=== PATIENT | male | born 1990 | race Caucasian/White ===

== ENCOUNTER 2022-11-08 16:54 | Emergency (ER) | payer BC, OTHER ==
[~2022-11-08] VITALS: Ht 185.4 cm; Wt 90.3 kg
--- NOTE | 2022-11-08 16:54 | NUR ---
PT BROUGHT IN BY [facility], TRIAGED AND PLACED IN BED #2, REPORT GIVEN TO TEOFILO
[2022-11-08 16:55] VITALS: BP_SYST 153; PULSE 89; RESP 18; TEMP 98; O2SAT 95
--- NOTE | 2022-11-08 18:30 | NUR ---
Dr. Kauffman at bedside with patient at this time.
[2022-11-08] MEDS ORDERED: NACL 0.9% 1,000 ML IV ONE (18:45)
[2022-11-08] MEDS ORDERED: levETIRAcetam 500 MG IV PREMIX 100 ML IV ONE (18:45)
--- NOTE | 2022-11-08 18:45 | NUR ---
Patient taken to Radiology department for exams.
--- NOTE | 2022-11-08 19:00 | NUR ---
Patient returned from radiology dept. VALENTE Doyle gave IV meds and then gave report to NOC VALENTE Graves.
[2022-11-08 19:23] LABS: BASOPHILS % (AUTO) 0.4 % (0.0-2.0); EOSINOPHILS # (AUTO) 0.1 K/uL (0.0-0.4); EOSINOPHILS % (AUTO) 1.1 % (0.0-4.0); HEMATOCRIT 40.9 % (36-54); HEMOGLOBIN 13.6 g/dL (14.0-18.0); LYMPHOCYTES # (AUTO) 1.5 K/uL (1.0-5.5); LYMPHOCYTES % (AUTO) 15.1 % (20.5-51.5); MEAN CORPUSCULAR HEMOGLOBIN 29 pg (27-31); MEAN CORPUSCULAR HGB CONC 33 % (32-36); MEAN CORPUSCULAR VOLUME 89 fL (79.0-98.0); MONOCYTES # (AUTO) 0.8 K/uL (0.0-1.0); MONOCYTES % (AUTO) 7.9 % (1.7-9.3); NEUTROPHILS # (AUTO) 7.5 K/uL (1.8-7.7); NEUTROPHILS % (AUTO) 75.5 % (40.0-70.0); PLATELET COUNT (AUTO) 230 K/uL (130-430); RED BLOOD CELL COUNT(AUTO) 4.61 MIL/uL (4.2-6.2); RED CELL DISTRIBUTION WIDTH 12.9 % (9.0-15.0)
--- NOTE | 2022-11-08 19:37 | NUR ---
PATIENT STABLE VITALS SIGNS IN NORMAL LIMITS NOT COMPLAINING OF PAIN AT THIS TIME
[2022-11-08 19:38] LABS: ALBUMIN 3.8 g/dL (3.4-4.8); CALCIUM 8.7 mg/dL (8.4-11.0); CREATININE 0.9 mg/dL (0.55-1.30); TOTAL BILIRUBIN 0.3 mg/dL (0.0-1.0)
[2022-11-08 19:52] LABS: BILIRUBIN,URINE NEGATIVE (NEGATIVE); BLOOD, URINE NEGATIVE (NEGATIVE); CLARITY/URINE CLEAR (CLEAR); COLOR,URINE YELLOW (YELLOW); GLUCOSE,URINE NEGATIVE (NEGATIVE); KETONES,URINE NEGATIVE (NEGATIVE); LEUKOCYTE ESTERASE ,URINE NEGATIVE (NEGATIVE); NITRITE, URINE NEGATIVE (NEGATIVE); PH,URINE 6.5 (5.0-8.0); PROTEIN URINE NEGATIVE (NEGATIVE); UROBILINOGEN,URINE 0.2 (0.2-1.0)
[2022-11-08] MEDS ORDERED: KETOROLAC TROMETHAMINE 30 MG VIAL IVP ONE (21:30)
--- NOTE | 2022-11-08 21:38 | NUR ---
Patient given written and verbal discharge instructions and verbalizes understanding. ER MD discussed with patient the results and treatment provided. Patient in stable condition. ID arm band removed. IV catheter removed intact and dressing applied, no active bleeding. Rx of KWAW given. Patient educated on pain management and to follow up with PMD. Pain Scale . Opportunity for questions provided and answered. Medication side effect fact sheet provided.
[2022-11-08 21:40] VITALS: BP_SYST 132; PULSE 83; RESP 18; TEMP 97.8; O2SAT 100
== END 2022-11-08 21:40 | disposition home or self-care (01) ==
LOC: SED 16:54
DX: R56.9 Unspecified convulsions (principal); Z79.899 Other long term (current) drug therapy
CPT/HCPCS: 99285; 96374; 70450; 96361; 80053; 83735; 85025; 36415; 93005; 76376; 96372; 81003; J1885; J1953 ×2; J7030